=== PATIENT | female | born 1955 | race Caucasian/White ===

== ENCOUNTER 2018-07-20 10:09 | Emergency (ER) | payer OTHER ==
--- NOTE | 2018-07-20 10:42 | EDPHY ---
H & P Stated Complaint: Lumbar pain x 5 days--tingling R calf/foot -diff than usual bk pain Time Seen by Provider: 07/20/18 10:24 HPI/ROS: CHIEF COMPLAINT: Low back pain HISTORY OF PRESENT ILLNESS: 63-year-old female with remote history of L4-5 and L5-S1 laminectomy in [facility] in 2012, followed by Dr. Geremias Coe, history of chronic back pain, complaining of worsening back pain for the past 5 days with new onset right lower extremity radiculopathy. Atraumatic. No fever no chills. No incontinence no retention. No saddle anesthesia. REVIEW OF SYSTEMS: A ten point review of systems was performed and is negative with the exception of the items mentioned in the HPI PAST MEDICAL & SURGICAL HISTORY: L4-5 and L5-S1 laminectomy in [facility] in 2011 SOCIAL HISTORY: , no iv drug use PHYSICAL EXAM (Prior to examination, patient consented to physical exam, hands were washed and my usual and customary physical exam procedures followed) 1) GENERAL: Well-developed, well-nourished, alert and oriented. Appears to be in no acute distress. 2) HEAD: Normocephalic, atraumatic 3) HEENT: Pupils equal, round, reactive to light bilaterally. Sclera anicteric. Nasopharynx, oropharynx, clear, no lesions. 4) NECK: Full range of motion, no meningeal signs. 5) LUNGS: Clear auscultation bilaterally, no wheezes, no rhonchi, no retractions. 6) HEART: Regular rate and rhythm, no murmur, no heave, no gallop. 7) ABDOMEN: No guarding, no rebound, no focal tenderness, negative McBurney's, negative Sosa's, negative Rovsing's, negative peritoneal sign, 8) MUSCULOSKELETAL: Moving all extremities, no focal areas of tenderness, no obvious trauma. No peripheral edema or discoloration. 9) BACK: tender to palpation paraspinous lumbar muscle. Positive positive straight leg lift test. No CVA tenderness, no midline vertebral tenderness, no fluctuance, no step-off, no obvious trauma, no visual or palpable abnormality. Patella, Achilles reflexes intact to bilateral strength 5/5 10) SKIN: No rash, no petechiae. 11) NEURO: Awake, alert, and oriented to person, place and time. Answers questions appropriately. There were no obvious focal neurologic abnormalities. No cerebellar dysfunction. Normal steady gait. Upper and lower extremities bilaterally with strength 5 / 5, reflexes 2+.. DIFFERENTIAL DIAGNOSIS: In no particular order, including but not limited to, fracture, sprain/strain, cauda equina, spinal infectious etiology. - Medical/Surgical History Hx Asthma: No Hx Chronic Respiratory Disease: No Hx Diabetes: No Hx Cardiac Disease: No Hx Renal Disease: No Hx Cirrhosis: No Hx Alcoholism: No Hx HIV/AIDS: No Hx Splenectomy or Spleen Trauma: No Other PMH: spinal surgery 2011. hypothyroid - Social History Smoking Status: Never smoked Constitutional: Initial Vital Signs Temperature (C) 36.7 C 07/20/18 10:16 Heart Rate 78 07/20/18 10:16 Respiratory Rate 16 07/20/18 10:16 Blood Pressure 130/77 H 07/20/18 10:16 O2 Sat (%) 95 07/20/18 10:16 O2 Delivery Mode Room Air Allergies/Adverse Reactions: Sulfa (Sulfonamide Antibiotics) Allergy (Verified 07/20/18 10:14) Home Medications: Medication Instructions Recorded Cyclobenzaprine HCl 07/20/18 Cymbalta 07/20/18 Prednisone 07/20/18 Synthroid 07/20/18 Xanax 07/20/18 oxyCODONE/APAP 5/325 [Percocet 1 tab PO Q6 #10 tab 07/20/18 5/325] Medical Decision Making - Diagnostics Imaging Results: Imaging Impressions Lumbar Spine MRI 07/20/18 10:34 Impression: 1. Stable to slight increase in disk bulge with facet hypertrophy and ligamentum flavum hypertrophy at L1-L2, L2-L3 and L3-L4 with associated spinal and neuroforaminal stenoses as detailed above. 2. Postoperative changes related to previous fusion from L4 through S1. 3. Bilateral renal cysts. Findings discussed with Palak ALFARO at 13:06 hour, 07/20/2018. Images reviewed myself ED Course/Re-evaluation: 10:34 a.m.: I reviewed the patient's medical records that she brought with her. Her last MRI was 2015. Of concerned this patient is atraumatic new onset radiculopathy and her right lower extremity, new pain described as different than her chronic pain. She is already followed by Dr. Geremias Coe, last MRI 2015. Recommended MRI of her lumbar spine which I think is indicated from the emergency department today due to her new right lower extremity radiculopathy and new, different pain. Discussed this with Dr. Jamarcus Lerner in the ER. 1:17 p.m.: Re-evaluation. Discussed with patient her MRI results showing a slight increase skin disc herniation multilevel in the lumbar spine. At this time I do not think that hospitalization is indicated nor do I think that emergent neurosurgical consultation is indicated. She has a pre-existing professional relationship with Dr. Geremias Coe. Today is Sunday. I recommend she follow up in the next week with either Dr. Geremias Coe or one of his associates patient feels comfortable being discharged. She does request a prescription for Percocet which was given to her. Patient is already on a Medrol Dosepak Departure - Departure Disposition: Home, Routine, Self-Care Clinical Impression: Lumbar disc herniation with radiculopathy Condition: Good Instructions: Acute Low Back Pain (ED) Additional Instructions: Seek medical attention if you develop new or worsening pain, if you develop bladder or bowel dysfunction, numbness around your perineum, foot drop, or any other symptoms that concern you. Referrals: Diogo Coe MD [Medical Doctor] - 2-3 days, call for appt. Prescriptions: oxyCODONE/APAP 5/325 [Percocet 5/325] 1 tab PO Q6 #10 tab
[2018-07-20 13:27] VITALS: BP 123/88
== END 2018-07-20 13:27 | disposition home or self-care (01) ==
DX: M51.16 Intervertebral disc disorders with radiculopathy, lumbar region (principal); E03.9 Hypothyroidism, unspecified

== ENCOUNTER → 2018-10-13 | Outpatient (CLI) | payer OTHER | LOC: FIMAGING 10:33 | PROVIDERS: ATTEND Nurse Practitioner | DX: M54.12 Radiculopathy, cervical region (principal); M25.78 Osteophyte, vertebrae; R29.2 Abnormal reflex; Z98.1 Arthrodesis status ==

== ENCOUNTER 2018-11-13 05:54 | Inpatient (IN) | payer OTHER ==
[2018-11-13] MEDS ORDERED: ACETAMINOPHEN 500 MG TAB PO ONE (06:05)
[2018-11-13] MEDS ORDERED: ceFAZolin 2 GM/DEXTROSE 100 ML IV ONE (06:05)
[2018-11-13] MEDS ORDERED: GABAPENTIN 300 MG CAP PO ONE (06:05)
--- NOTE | 2018-11-13 06:30 | PDHPUP ---
History & Physical Update H&P update statement: This history and physical update is based on an assessment of the patient which was completed after admission or registration (within 24 hours), but prior to the surgery/procedure. H&P update: H&P reviewed & patient examined, no change in patient's condition since H&P completed
[2018-11-13] MEDS ORDERED: ACETAMINOPHEN 325 MG TAB PO PRN (06:47)
[2018-11-13] MEDS ORDERED: BUPIVACAINE 0.25% 30 ML SDV ONE (06:51)
[2018-11-13] MEDS ORDERED: BACITRACIN 50,000 UNITS/10 ML SYR IRR ONE (06:51)
[2018-11-13] MEDS ORDERED: THROMBIN (BOVINE) 5,000 UNIT VIAL TP ONE (06:51)
[2018-11-13] MEDS ORDERED: CHLORHEXIDINE GLUC HIBICLENS 118 ML BTL TP ONE (06:51)
[2018-11-13] MEDS ORDERED: EPINEPHrine 1 MG/ML INJ ONE (06:51)
--- NOTE | 2018-11-13 06:55 | PDANEPAE ---
ANE History of Present Illness lumbar pain with radiculopathy, here for L3-L4 lami/fusion ANE Past Medical History - Cardiovascular History Hx Hypertension: No Hx Arrhythmias: No Hx Chest Pain: No Hx Coronary Artery / Peripheral Vascular Disease: No Hx CHF / Valvular Disease: No Hx Palpitations: No - Pulmonary History Hx COPD: No Hx Asthma/Reactive Airway Disease: No Hx Recent Upper Respiratory Infection: No Hx Oxygen in Use at Home: No Hx Sleep Apnea: No Sleep Apnea Screening Result - Last Documented: Negative - Neurologic History Hx Cerebrovascular Accident: No Hx Seizures: No Hx Dementia: No Neurologic History Comment: hx of cervical spine and lower spine surgery x2. peripheral neuropathy to right leg - Endocrine History Hx Diabetes: No Endocrine History Comment: hypothyroidism. hx of thyroidectomy in s - Renal History Hx Renal Disorders: No - Liver History Hx Hepatic Disorders: No - Neurological & Psychiatric Hx Hx Neurological and Psychiatric Disorders: Yes Neurological / Psychiatric History Comment: anxiety - Cancer History Hx Cancer: No - Congenital Disorder History Hx Congenital Disorders: No - GI History Hx Gastrointestinal Disorders: No - Other Health History Other Health History: wears contacts - Chronic Pain History Chronic Pain: Yes (lower back and right leg) - Surgical History Prior Surgeries: lower back surgery x2. cervical neck surgery. thyroidectomy in 70's ANE Review of Systems Review of Systems: - Exercise capacity METS (RN): 4 METS ANE Patient History - Allergies Allergies/Adverse Reactions: Sulfa (Sulfonamide Antibiotics) Allergy (Verified 11/11/18 11:44) Itching - Home Medications Home Medications: DULoxetine [Cymbalta 60 MG (*)] 60 mg PO DAILY 07/20/18 [Last Taken 11/13/18] Levothyroxine [Synthroid 150 mcg (*)] 150 mcg PO DAILY06 07/20/18 [Last Taken ] Acetaminophen [Tylenol 325mg (*)] 325 mg PO DAILY PRN 10/29/18 [Last Taken 11/09] Gabapentin [Neurontin 300 MG (*)] 300 mg PO DAILY 10/29/18 [Last Taken 11/12/18] Gabapentin [Neurontin 300 MG (*)] 600 mg PO HS 10/29/18 [Last Taken 11/13/18] Rosuvastatin Calcium [Crestor 10mg (RX)] 10 mg PO HS 10/29/18 [Last Taken ] - NPO status NPO Since - Liquids (Date): 11/12/18 NPO Since - Liquids (Time): 04:00 NPO Since - Solids (Date): 11/12/18 NPO Since - Solids (Time): 19:00 - Smoking Hx Smoking Status: Never smoked - Family Anes Hx Family Hx Anesthesia Complications: none ANE Labs/Vital Signs - Vital Signs Blood Pressure: 151/81 Heart Rate: 78 Respiratory Rate: 12 O2 Sat (%): 97 Height: 180.34 cm Weight: 74.84 kg ANE Physical Exam - Airway Neck exam: FROM Mallampati Score: Class 2 Mouth exam: normal dental/mouth exam - Pulmonary Pulmonary: no respiratory distress, no rales or rhonchi - Cardiovascular Cardiovascular: regular rate and rhythym, no murmur, rub, or gallop - ASA Status ASA Status: II ANE Anesthesia Plan Anesthesia Plan: general endotracheal anesthesia Total IV Anesthesia: Yes
[2018-11-13] MEDS ORDERED: MIDAZOLAM 2 MG/2 ML VIAL IVP ONE (06:57)
[2018-11-13] MEDS ORDERED: SCOPOLAMINE HYDROBROMIDE 1 MG/3 DAYS PATCH TD SCH (07:00)
[2018-11-13] MEDS ORDERED: REMIFENTANIL HCL 1 MG VIAL ONE ×2 (07:02→08:06)
[2018-11-13] MEDS ORDERED: PROPOFOL/EMULSION 500 MG/50 ML BOTTLE IV ONE ×3 (07:02→08:06)
[2018-11-13] MEDS ORDERED: PROPOFOL 200 MG/20 ML VIAL ONE (07:02)
[2018-11-13] MEDS ORDERED: ROCURONIUM 50 MG/5 ML VIAL ONE (07:05)
[2018-11-13] MEDS ORDERED: SCOPOLAMINE HYDROBROMIDE 1 MG/3 DAYS PATCH TD ONE (07:21)
[2018-11-13] MEDS ORDERED: BISACODYL 10 MG SUPP PR PRN (07:39)
[2018-11-13] MEDS ORDERED: diphenhydrAMINE 25 MG CAP PO PRN (07:39)
[2018-11-13] MEDS ORDERED: HYDROmorphONE/DILAUDID 1 MG/ML INJ IVP PRN (07:39)
[2018-11-13] MEDS ORDERED: ONDANSETRON 4 MG/2 ML VIAL IVP PRN (07:39)
[2018-11-13] MEDS ORDERED: ONDANSETRON DISINTEGRATING 4 MG TAB PO PRN (07:39)
[2018-11-13] MEDS ORDERED: LACTULOSE 20 GM/30 ML UDCUP PO PRN (07:39)
[2018-11-13] MEDS ORDERED: MAGNESIUM HYDROXIDE 30 ML UDCUP PO PRN (07:39)
[2018-11-13] MEDS ORDERED: POLYETHYLENE GLYCOL 3350 17 GM PKT PO PRN (07:39)
[2018-11-13] MEDS ORDERED: NS 1,000 ML IV SCH (07:45)
[2018-11-13] MEDS ORDERED: DEXAMETHASONE 4 MG/ML VIAL ONE ×3 (08:12→10:49)
[2018-11-13] MEDS ORDERED: HYDROmorphONE/DILAUDID 2 MG/ML INJ ONE ×2 (10:15→12:17)
[2018-11-13] MEDS ORDERED: DIAZEPAM 5 MG/ML 1 ML SYR IVP PRN (10:45)
[2018-11-13] MEDS ORDERED: NALOXONE HCL 0.4 MG/ML INJ IVP PRN (10:45)
[2018-11-13] MEDS ORDERED: PROMETHAZINE HCL 25 MG/ML INJ IVP PRN (10:45)
[2018-11-13] MEDS ORDERED: PHENYLEPHRINE 10 MG/ML SDV ONE (10:49)
[2018-11-13] MEDS ORDERED: ONDANSETRON 4 MG/2 ML VIAL ONE (10:49)
[2018-11-13] MEDS ORDERED: PHENYLEPHRINE HCL 100 MCG/ML SYR ONE (10:49)
--- NOTE | 2018-11-13 11:33 | POSTOPPROG ---
Post Op Note Date of Operation: 11/13/18 Surgeon: Diogo Coe Cake Puller: CLAUDIA Sweet Anesthesiologist: DO Nery Anesthesia: GET(General Endotracheal), Local (Specify) Pre-op Diagnosis: Lumbar stenosis L3/4, hardware removal Post-op Diagnosis: Lumbar stenosis L3/4, hardware removal Indication: lumbar stenosis L3/4 Procedure: hardware removal L4-S1 with TLIF L3/4 with L3-L5 PSF Findings: see op report Inf/Abcess present in the surg proc area at time of surgery?: No Depth: Deep Incisional (Fascial) EBL: 100-500 Total fluids administered: see anesthesia record Complications: none Drains: Mauricio Hernandez
--- NOTE | 2018-11-13 11:34 | POSTANESTH ---
Post Anesthetic Evaluation Cardiovascular Status: Normal, Stable Respiratory Status: Normal, Stable Level of Consciousness/Mental Status: Can Participate in Eval, Mildly Sleepy, Arousable Pain Control: Adequate, Prn Tx Ordered Nausea/Vomiting Control: Adequate, Prn Tx Ordered Complications Possibly Related to Anesthesia: None Noted
--- NOTE | 2018-11-13 11:37 | SOAPPROG ---
SOAP Progress Note Assessment/Plan: Post Op Visit: S: Awake and alert. NAD. Pt with expected lower back pain O: AFVSS/PERRLA/EOMI no droop CN 2-12 grossly intact +lt touch 5/5 BUE/BLE = CDI CHRIS in place A/P: 63 yo female that is s/p removal of hardware at L4-S1 with TLIF L3/4 with PSF L3-L5 -awake and alert -pt with expected lower back pain -brace when out of bed -post op xrays in am -warning signs given -call with any questions or concerns Objective: Vital Signs Temp Pulse Resp BP Pulse Ox 36.6 C 78 12 151/81 H 97 11/13/18 06:17 11/13/18 06:56 11/13/18 06:56 11/13/18 06:56 11/13/18 06:56 ICD10 Worksheet Patient Problems: Problems Problem Status Onset Arthrodesis status Acute Lumbar radicular pain Acute Lumbar stenosis Acute - ICD10 Problem Qualifiers (1) Lumbar stenosis (2) Lumbar radicular pain (3) Arthrodesis status
[2018-11-13] MEDS ORDERED: fentaNYL 100 MCG/2 ML INJ ONE (11:38)
[2018-11-13] MEDS: fentaNYL 100 MCG/2 ML INJ IVP PRN ×2 (11:39→11:55)
[2018-11-13] MEDS: HYDROmorphONE/DILAUDID 2 MG/ML INJ IVP PRN ×2 (12:21→13:30)
--- NOTE | 2018-11-13 12:32 | GOP ---
[f rep st] OPERATIVE REPORT DATE OF OPERATION: 11/13/2018 SURGEON: Alexander Coe MD NEUROSURGEON: Alexander Coe MD. RNFA: Toby Sweet PA-C. 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 POSTOPERATIVE DIAGNOSIS: PROCEDURE PERFORMED: Removal of posterior segmental instrumentation L4, L5, S1; posterolateral and i ntervertebral arthrodesis L3-4 (03400); placement of new hardware at L3, L4, L5, segmental (44800); p lacement of biomechanical intervertebral device L3-4; same-incision bone graft harvest; spinal stereo taxis. FINDINGS: ESTIMATED BLOOD LOSS: 150 mL. INDICATIONS: The patient is a 63-year-old with a prior history of an L4-5 and L5-S1 fusion at an out side facility. She came to see me with increasingly severe radiating right leg pain that was unrespo nsive to conservative measures and she desired to have surgery. The risk of adjacent segment disease at L2-3 was suggested. She understands this is a risk down the road and that may eventually need to be addressed. She did have spinal stenosis at L3-4 and bilateral recess stenosis at that level and I intended to perform bilateral decompressions with more work done on the right-hand side than the le ft to help ensure that we eliminate her right leg pain. She knew there was a chance surgery would fa il. She knew there was risk of hardware malfunction, malposition, bleeding, spinal fluid leak, pseud oarthrosis. She wanted to proceed despite the risks. She also knew there was risk of infection. DESCRIPTION OF PROCEDURE: The patient was taken to the operating room and placed in the supine posit ion. General anesthesia was begun. A Hatfield catheter was placed. She was flipped prone onto the Bhaskar kson table. Care was taken to pad all points of contact. Her back was sterilely prepped and draped in the usual fashion. A localizing x-ray was taken. We excised her prior lumbar incision that was j ust slightly off to the right of the midline and we performed a full-thickness excision of the skin/s car so that we could clean this up. The subcutaneous tissue was dissected using plasma blade down th rough the fascia and a subperiosteal dissection was made down the inferior lamina of L2. The complet e lamina of L3 was exposed. The transverse processes of L3 were exposed. The pedicle screw instrume ntation at L4, L5 and S1 was exposed. A self-retaining retractor was placed. Removed the prior hard booker. It was cleaned and we intended to give it back to the patient. I was not sure of the brand na me of the hardware that was removed, but we were able to get it out without any difficulty and she ap peared to have a very solid posterolateral fusion from L4 to S1. This had been confirmed on preop CT scan, but also this is what we found intraoperatively when we explored the fusion. We removed all t he prior screws. They were all 6 mm screws and we intended to replace them with 6.5 mm screws made b [employer]. We denuded the hypertrophic bilateral L3-4 facets that would be fused for this case to help create posterolateral arthrodesis. We attached the Stealth reference from the L3 spinous proces s, performed an O-arm spin and using stereotactics, placed pedicle screws bilaterally at L 3, L4 and L5. We performed an O-arm spin, and all the screws were in excellent position. It was int eresting, however, on the O-arm spin, that as we were looking at the spin, all the screws were in exc ellent position, but it appeared that the right L5 screw was mistakenly a percutaneous screw. It evelin eared hollow and indeed, we went and investigated this and it was a hollow screw. We removed this an d replaced it with a 6.5 x 45 mm solid pedicle screw without difficulty. All the screws were in exce llent position. They stimulated at acceptable levels we placed rods down over the screws, distracted significantly at L3-4. We then removed all soft tissue and bone at L3-4 and removed the inferior sp inous process of L3, harvested this for autologous grafting purposes and under the scope, we drilled bilateral laminas of L3 and harvested this bone for autologous grafting purposes. We then removed th e rostrum of the L4 lamina to decompress the thecal sac and used Kerrison punches to decompress the s mervat canal at the L3-4 level. It is interesting because just to the right of the midline, but very close to the midline at the L3-4 level, there was a small dural bleb, but there was no spinal fluid l eaking from it and it actually was partially epithelialized. It is unclear if this is related to héctor or interventional treatments or not, but there was no leakage of spinal fluid. At one point, we ente rtained closing it, but we continue to manipulate the dura throughout the case and it measured about a millimeter in size, it was quite small and it never leaked any spinal fluid. We mobilized the righ t L4 root, removed the right L3-4 facet joint and then incised the 3-4 disk, removed the disk and the cartilaginous endplates. We packed the interspace with bone autograft and BMP sponge. We then inse rted an 8 x 28 mm Elevate device at the 3-4 level. We relaxed our distraction at L3-4 to allow the h ardware to collapse down on the implant and then we expanded the implant while the hardware had been released. This created some nice lordosis at the L3-4 level. We then final tightened the L3 cap scr ews. We then decorticated all remaining bone posterolaterally bilaterally, placed bone autograft and BMP posterolaterally. We used 2 mg of BMP for the entire surgery. A subfascial drain was placed. We then closed the incision in multiple layers using Vicryl sutures. Steri-Strips were applied the s kin. The patient was reversed from anesthesia, extubated and transferred to the recovery room in sta ble condition. There were no complications. COMPLICATIONS: None. /[id number]/MODL
--- NOTE | 2018-11-13 13:21 | SOAPPROG ---
MAURISIO Progress Note Assessment/Plan: Assessment: appears to PACU that patient has a corneal abrasion based on pain and irritation in the eye Plan: 11/13/18 13:17 will see the patient tomorrow for follow up saline patch to affected eye if worsening redness, purulent discharge or worsening pain will consult optho Subjective: called by the PACU and told patient had irritation and pain on surface of her eye and appeared to have a possible corneal abrasion. unable to see the patient at the time of the call because i am in the OR with a second case. no drainage, visual field changes, discharge, pressure noted. eye movement in tact Objective: Vital Signs Temp Pulse Resp BP Pulse Ox 36.7 C 78 14 114/60 98 11/13/18 11:23 11/13/18 06:56 11/13/18 13:05 11/13/18 13:01 11/13/18 13:05 11/12/18 11/13/18 11/14/18 05:59 05:59 05:59 Output Total 80 Balance -80 VS and data noted, unable to see patient at time of the call, will evaluate when able after the conclusion of this case and again tomorrow on he floor - Pending Discharge Pending Discharge Within 48 Hours: Yes Pending Discharge Date: 11/15/18 Pending Discharge Time: 11:00 ICD10 Worksheet Patient Problems: Problems Problem Status Onset Arthrodesis status Acute Lumbar radicular pain Acute Lumbar stenosis Acute
--- NOTE | 2018-11-13 13:49 | PDMN ---
Medical Necessity Medical necessity: Pt meets inpt criteria per MD order and [facility] S-820, Lumbar Fusion, Medicare inpt only list, 3 days. 63 y/o w/lumbar stenosis admitted for hardware removal L4-S1 w/TLIF L3/4 w/L3-5 PSF and post-op care.
[2018-11-13] MEDS: oxyCODONE IR 5 MG TAB PO PRN ×3 (14:00→21:53)
[2018-11-13] MEDS: ceFAZolin 2 GM/DEXTROSE 100 ML IV SCH ×2 (14:02→21:40)
[2018-11-13] MEDS: FAMOTIDINE 20 MG TAB PO SCH ×2 (15:06→21:38)
[2018-11-13] MEDS: SENNOSIDES/DOCUSATE SODIUM TAB PO SCH ×2 (15:06→21:38)
[2018-11-13] MEDS: DULoxetine 60 MG CAP PO SCH (15:12)
[2018-11-13] MEDS: GABAPENTIN 300 MG CAP PO SCH ×2 (15:13→21:38)
[2018-11-13] MEDS: METHOCARBAMOL 750 MG TAB PO PRN ×2 (15:18→23:42)
[2018-11-13] MEDS ORDERED: ERYTHROMYCIN 0.5% 1 GM OPHT.OINT EACHEYE ONE (17:23)
[2018-11-13] MEDS: ROSUVASTATIN CALCIUM 10 MG TAB PO SCH (21:37)
[2018-11-13] MEDS: KETOROLAC 0.5% 5 ML OPHT.BTL EACHEYE SCH (21:56)
[2018-11-14] MEDS: oxyCODONE IR 5 MG TAB PO PRN ×4 (01:58→19:29)
[2018-11-14] MEDS: METHOCARBAMOL 750 MG TAB PO PRN ×3 (05:44→17:47)
[2018-11-14] MEDS: LEVOTHYROXINE 150 MCG TAB PO SCH (05:44)
[2018-11-14 05:47] LABS: PLATELET COUNT 199 10^3/uL (150-400)
[2018-11-14] MEDS: KETOROLAC 0.5% 5 ML OPHT.BTL EACHEYE SCH ×4 (06:33→23:14)
--- NOTE | 2018-11-14 07:55 | NEUSURGPN ---
Date of Surgery: 11/13/18 Post Op Day: 1 Assessment/Plan: Assessment: 63 yo female that is s/p removal of hardware at L4-S1 with TLIF L3/ 4 with PSF L3-L5 POD #1 Plan: -s/p TLIF: pt states she has expected lower back pain. Legs feel fine/improved RLE -awake and alert -PT/OT pending -pt had corneal abrasion-better this am -brace when out of bed -rested fine thru night -post op xrays pending this am -pt seen by Dr Coe as well -CHRIS in place -warning signs given -call with any questions or concerns Subjective: Awake and alert. NAD. Eating/drinking and voiding. No f/c/n/v/d. Pt with expected lower back pain. Legs feel fine Objective: AFVSS/PERRLA/EOMI no droop CN 2-12 grossly intact +lt touch 5/5 BUE/BLE = CDI CHRIS in place Neuro Check Frequency: per routine Urinary Catheter in Place: No - Physician Discussed Patient with DrSteffanie: Saravanan Patient Seen by : Saravanan Neurosurgery Physical Exam - Vitals, I&O, Labs I and O 11/13/18 11/14/18 11/15/18 05:59 05:59 05:59 Intake Total 1870 Output Total 779 Balance 1091 Weight 74.84 kg Intake: Oral (ml) 550 IV Infused (ml) 1320 Ns 1,000 ml @ 75 mls/hr 1215 IV CONT [place] Rx#: [id number] ceFAZolin 2 GM/DEXTROSE 105 100 ml @ 200 mls/hr IV Q8HRS [place] Rx#:[id number] Output: Urine (ml) 550 Toilet 550 CHRIS Drain Output (ml) 229 Back 229 Other: Number of Voids Toilet 1 Vital Signs Temp Pulse Resp BP Pulse Ox 36.3 C 71 17 111/54 L 92 11/14/18 04:00 11/14/18 04:00 11/14/18 04:00 11/14/18 04:00 11/14/18 04:00 Laboratory Results 11/14/18 05:15 11/14/18 05:15 ICD10 Worksheet Patient Problems: Problems Problem Status Onset Arthrodesis status Acute Lumbar radicular pain Acute Lumbar stenosis Acute - ICD10 Problem Qualifiers (1) Lumbar stenosis (2) Lumbar radicular pain (3) Arthrodesis status
[2018-11-14] MEDS ORDERED: BLINK EACHEYE PRN (08:59)
[2018-11-14] MEDS: BLINK EACHEYE PRN ×3 (10:08→22:14)
[2018-11-14] MEDS: SENNOSIDES/DOCUSATE SODIUM TAB PO SCH ×2 (10:09→21:42)
[2018-11-14] MEDS: FAMOTIDINE 20 MG TAB PO SCH ×2 (10:09→21:42)
[2018-11-14] MEDS: GABAPENTIN 300 MG CAP PO SCH ×2 (10:09→21:44)
[2018-11-14] MEDS: DULoxetine 60 MG CAP PO SCH (10:09)
[2018-11-14] MEDS: ACETAMINOPHEN 325 MG TAB PO SCH ×2 (11:41→17:46)
--- NOTE | 2018-11-14 15:05 | ASMTCMCOM ---
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 OT rec home and PT rec home/outpatient today. CM to follow pt progress, pt likely independent. Date Signed: 11/14/2018 03:04 PM Electronically Signed By:LASHAWN Hill
[2018-11-14] MEDS ORDERED: MINERAL OIL EACHEYE SCH (21:00)
[2018-11-14] MEDS ORDERED: [UNRECOGNIZED DRUG - OTHER] EACHEYE SCH (21:00)
[2018-11-14] MEDS ORDERED: PETROLATUM EACHEYE SCH (21:00)
[2018-11-14] MEDS: ROSUVASTATIN CALCIUM 10 MG TAB PO SCH (21:44)
[2018-11-15] MEDS: ACETAMINOPHEN 325 MG TAB PO SCH ×3 (00:15→12:18)
[2018-11-15 00:24] VITALS: BP 106/52
[2018-11-15] MEDS: KETOROLAC 0.5% 5 ML OPHT.BTL EACHEYE SCH (05:23)
[2018-11-15] MEDS: LEVOTHYROXINE 150 MCG TAB PO SCH (05:47)
[2018-11-15] MEDS: METHOCARBAMOL 750 MG TAB PO PRN (05:47)
[2018-11-15] MEDS: FAMOTIDINE 20 MG TAB PO SCH (07:32)
[2018-11-15] MEDS: DULoxetine 60 MG CAP PO SCH (07:32)
[2018-11-15] MEDS: GABAPENTIN 300 MG CAP PO SCH (07:33)
[2018-11-15] MEDS: SENNOSIDES/DOCUSATE SODIUM TAB PO SCH (07:33)
[2018-11-15] MEDS: oxyCODONE IR 5 MG TAB PO PRN ×2 (07:34→11:12)
--- NOTE | 2018-11-15 10:13 | NEUSURGPN ---
Date of Surgery: 11/13/18 Post Op Day: 2 Assessment/Plan: 63 yo female that is s/p removal of hardware at L4-S1 with TLIF L3/4 with PSF L3 -L5 POD #2 Plan: -Neuro stable -Corneal abrasion: improved/resolved -Postop x-rays completed -Remove CHRIS drain -PT/OT -Wear brace when out of bed -Discharge: later today if continues to progress well Discussed with Dr. Coe. Subjective: Pain concentrated at the surgical site, no LE symptoms. Objective: Awake. Alert. PERRL. EOMI Facial expression symmetrical Muscle strength full at 5/5 Sensation intact Incision with dressing c/d/i - Physician Discussed Patient with .: Saravanan Neurosurgery Physical Exam - Vitals, I&O, Labs I and O 11/14/18 11/15/18 11/16/18 05:59 05:59 05:59 Intake Total 1870 1900 Output Total 779 2090 80 Balance 1091 -190 -80 Weight 74.84 kg Intake: Oral (ml) 550 1900 IV Infused (ml) 1320 Ns 1,000 ml @ 75 mls/hr 1215 IV CONT [place]INA Rx#: [id number] ceFAZolin 2 GM/DEXTROSE 105 100 ml @ 200 mls/hr IV Q8HRS [place] Rx#:[id number] Output: Urine (ml) 550 1850 Toilet 550 1850 CHRIS Drain Output (ml) 229 240 80 Back 229 240 80 Other: Intake Quantity Yes Sufficient Number of Voids Toilet 1 1 Vital Signs Temp Pulse Resp BP Pulse Ox 36.7 C 74 16 106/52 L 91 L 11/15/18 00:00 11/15/18 08:00 11/15/18 08:00 11/15/18 00:00 11/15/18 08:00 Laboratory Results 11/14/18 05:15 11/14/18 05:15 ICD10 Worksheet Patient Problems: Problems Problem Status Onset Arthrodesis status Acute Lumbar radicular pain Acute Lumbar stenosis Acute
--- NOTE | 2018-11-15 14:04 | ASMTLACE ---
TOM Length of stay for Answers: 3 days current admission Acuity / Level of Answers: Yes Care: Did the patient have an inpatient admission? Comorbidities - select Answers: Opioid dependence all that apply / Chronic pain Other Notes: Hypothyroid # of Emergency department Answers: 1-2 visits in the last 6 months Social determinants Answers: Mental health diagnosis (anxiety, depression, pers onality disorders, etc.) Score: 15 Date Signed: 11/15/2018 02:04 PM Electronically Signed By:LASHAWN Hill
--- NOTE | 2018-11-15 14:05 | ASMTCMCOM ---
CM Note CM Note Notes: Pt medically stable for d/c, no CM d/c needs identified. Date Signed: 11/15/2018 02:05 PM Electronically Signed By:LASHAWN Hill
[2018-11-16] MEDS ORDERED: PATCH REMOVAL 1 EA PATCH TD SCH (06:57)
[2018-11-16] MEDS ORDERED: ENOXAPARIN 40 MG/0.4 ML SYR SC SCH (09:00)
== END 2018-11-15 12:37 | disposition home or self-care (01) | DRG 455 ==
LOC: F3N 05:54
PROVIDERS: ADMIT Neurological Surgery; ATTEND Neurological Surgery
DX: M48.062 Spinal stenosis, lumbar region with neurogenic claudication (principal); M47.27 Other spondylosis with radiculopathy, lumbosacral region; S05.00XA Injury of conjunctiva and corneal abrasion without foreign body, unspecified eye, initial encounter; X58.XXXA Exposure to other specified factors, initial encounter; H04.129 Dry eye syndrome of unspecified lacrimal gland; E89.0 Postprocedural hypothyroidism; G62.9 Polyneuropathy, unspecified; F41.9 Anxiety disorder, unspecified; Z98.1 Arthrodesis status
CPT/HCPCS: 97116-GP; 97161-GP; 97165-GO; 97530-GP; C1713; J0171; J0690; J1100; J1170; J2250; J2370; J2405; J2704; J3010

== ENCOUNTER → 2019-01-06 | Outpatient (CLI) | payer OTHER | LOC: FIMAGING 12:44 | PROVIDERS: ATTEND Physician Assistant | DX: Z09 Encounter for follow-up examination after completed treatment for conditions other than malignant neoplasm (principal); Z98.1 Arthrodesis status; M51.36 Other intervertebral disc degeneration, lumbar region; M43.17 Spondylolisthesis, lumbosacral region; M47.27 Other spondylosis with radiculopathy, lumbosacral region; M43.16 Spondylolisthesis, lumbar region ==

== ENCOUNTER → 2019-02-17 | Outpatient (CLI) | payer OTHER | LOC: FIMAGING 11:48 | PROVIDERS: ATTEND Physician Assistant | DX: Z12.31 Encounter for screening mammogram for malignant neoplasm of breast (principal) ==

== ENCOUNTER → 2019-02-24 | Outpatient (CLI) | payer OTHER | LOC: FIMAGING 12:56 | PROVIDERS: ATTEND Physician Assistant | DX: Z13.820 Encounter for screening for osteoporosis (principal); M85.89 Other specified disorders of bone density and structure, multiple sites; Z78.0 Asymptomatic menopausal state; Z85.3 Personal history of malignant neoplasm of breast; Z79.899 Other long term (current) drug therapy ==